=== PATIENT | female | born 2005 | race Caucasian/White ===

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

== ENCOUNTER 2024-04-02 04:07 | Emergency (ER) | payer OTHER, SELFPAY ==
[2024-04-02 04:18] VITALS: BP 118/65
[2024-04-02] MEDS: TYLENOL 1000 MG PO (04:40)
[2024-04-02 05:20] LABS: COVID-19 Antigen Negative (Negative)
[2024-04-02 08:00] VITALS: BP 107/70; BMI 24.8
--- NOTE | 2024-04-02 08:11 | ED.GENMED ---
History of Present Illness
General
Chief Complaint: Cold/Flu/URI Symptoms
Source: patient
Exam Limitations: none
Time Seen by Provider: 04/02/24 07:24
Nursing documentation reviewed up to this point in time: agreed with
History of Present Illness
History of Present Illness:
18-year-old female presenting to the emergency department today for concerns of bodyaches sore throat mild cough starting yesterday. Denies taking any medications this morning. Woke up with a fever of 100.1 at home. Denies any chest pain
shortness of breath vomiting.
Past History
Past History
ED Past Medical History: None
ED Past Surgical History: Other
Social History
Tobacco: Non-smoker
Alcohol: None
Drug: None
Personal: Single
Living: with family
Employment: Other
Family History
Family History: Other
Review of Systems
Review of Systems
Allergies reviewed?: Yes
All Other Systems: ROS reviewed and negative except as documented in HPI and ROS
Phy Exam
Physical Exam
Physical Exam:
GENERAL: Alert , in no apparent distress
EYE: pupils equal and reactive
NECK: Supple, no significant adenopathy.
ENT: Mild swelling to the tonsils without significant exudate bilaterally uvula midline, swollen boggy nasal turbinates, small minute postnasal drip. o/p clr, mmm.
CARDIAC: Regular rate and rhythm .
LUNGS: Clear breath sounds bilaterally, no acute respiratory distress, no wheezes/rales/rhonchi
ABDOMEN: Soft, without focal tenderness, no r/g, no cvat
NEUROLOGICAL: Alert and oriented, no focal neuro deficits
SKIN: Warm and dry, skin intact.
MUSCULOSKELETAL: No edema, well perfused.
PSYCH: Normal and appropriate interaction.
Sepsis
Sepsis Screening
Sepsis Assessment: Sepsis Ruled Out
Sepsis Screen
Sepsis Screen: Sepsis Ruled Out
Date: 04/02/24
Time: 08:32
Course
Orders/Labs/Results
Orders:
Orders
04/02/24 04:36
COVID-19 Antigen Urgent
Source: Nasal Swab
Influenza A+B Rapid Molecular Urgent
CHARLIE Source: Nasal Swab
Specimen Description:
04/02/24 04:38
Acetaminophen [Tylenol] 1,000 mg .ROUTE .STK-MED ONE
04/02/24 04:40
Acetaminophen [Tylenol] 1,000 mg PO NOW STA
04/02/24 06:55
Rapid Strep Group A Urgent
CHARLIE Source: Throat/Pharynx
Specimen Description:
Date Specimen was Collected: 04/02/24
Time Specimen was Collected: 06:53
04/02/24 07:59
Beta Hcg Serum Qualitative Screen [HCG, Serum Qualitative Screen] Urgent
CBC/With Diff [Complete Blood Count/With Diff] Urgent
CMP [Comprehensive Metabolic Panel] Urgent
Monotest Urgent
Dexamethasone [Decadron] 10 mg PO NOW STA
Ibuprofen [Motrin] 600 mg PO NOW STA
Test Result ONCE
Vital Signs
Initial and Last Documented VS:
Initial Vital Signs
Temp Pulse Resp BP Pulse Ox
100.1 F 104 20 118/65 96
04/02/24 04:18 04/02/24 04:18 04/02/24 04:18 04/02/24 04:18 04/02/24 04:18
Last Documented Vital Signs
Temp Pulse Resp BP Pulse Ox
100.1 F 80 16 107/70 98
04/02/24 04:18 04/02/24 08:00 04/02/24 08:00 04/02/24 08:00 04/02/24 08:00
MDM/Problems Addressed
MDM/Problems Addressed:
18-year-old female presenting to the emergency department today with concerns of bodyaches sore throat nasal congestion fever started yesterday afternoon ongoing this morning. Denies specific chest pain upon arrival mildly tachycardic mildly
febrile was given Motrin as well as steroid due to throat inflammation. Seems unlikely considering fever is low-grade, no significant exudate patient does have a cough. Or likely to be viral syndrome. Patient was tested for mono. Otherwise
patient well-appearing in no distress stable for outpatient management heart rate improving to 80 after receiving treatment here. Return precautions given.
*Critical Care Note
Total Time (30-74mins, 75-104mins- exclusive of procedures): Not Applicable
ED Attending Note
-
Portions of this chart may have been created with voice recognition software.� Occasional wrong word or��sound alike� substitutions may have occurred due to the inherent limitations of voice recognition software.
Discharge Plan
Departure
Patient Disposition: Home (Routine Discharge)
Date of Disposition: 04/02/24
Time of Disposition: 08:30
Patient with high blood pressure during this ER visit?: No
Condition: Good
Covid-19: Not Applicable
Discharge Problem:
Acute viral syndrome
Instructions: Viral Syndrome (DC)
Prescriptions:
No Action
acetaminophen-codeine 300-30 mg Tablet
1 tab PO Q4HPRN PRN (Reason: pain) Qty: 8 0RF
amoxicillin 500 mg tablet
500 mg PO BID 7 Days Qty: 14 0RF
penicillin V potassium 500 mg tablet
500 mg PO QID Qty: 40 0RF
diclofenac sodium 75 mg tablet,delayed release (DR/EC)
75 mg PO BID Qty: 10 0RF
Referrals:
NONE,* [Family Provider] -
Activity Restrictions/Additional Instructions:
You came to the emergency department today with concerns of symptoms consistent with viral syndrome. Please take Motrin Tylenol help with symptoms and stay hydrated at home. We will contact you if your monotest is positive. Return to the
emergency department for any worsening, new or concerning symptoms.
Interventions
Interventions:
*Risk Screen - Suicide Last Done: 04/02/24 04:18
*General Assessment Last Done: 04/02/24 04:18
*Neglect/Abuse Screening Last Done: 04/02/24 04:18
ED- Fall Risk Assessment Last Done: 04/02/24 04:18
*ED COVID-19 Vaccine History Last Done: 04/02/24 04:18
Discharge Date and Time
Print Language: ERITREAN
[2024-04-02] MEDS: DECADRON 10 MG PO (08:18)
[2024-04-02] MEDS: MOTRIN 600 MG PO (08:18)
[2024-04-02 08:40] LABS: % Basophils 0.3 % (0-2); % Eosinophils 0.2 % (0-6); % Immature Granulocytes 0.4 % (0-0.5); % Lymphocytes 11.9 % (20.5-51.1); % Monocytes 7.5 % (1.7-9.3); % Neutrophils 79.7 % (42.2-75.2); Absolute Immature Granulocytes 0.1 10^3/uL (0-0.05); Absolute Lymphocytes 1.4 10^3/uL (1.2-3.4); Absolute Monocytes 0.9 10^3/uL (0.1-0.6); Absolute Neutrophils 9.1 10^3/uL (1.4-6.5); Hemoglobin 13.5 g/dL (12.0-16.0); Mean Corp Hgb Conc. 33.8 g/dL (33.0-37.0); Mean Corpuscular Hgb 26.8 pg (27.0-31.0); Mean Corpuscular Volume 79.5 fL (81.0-99.0); Nucleated Red Blood Cells % 0 %; Platelet Count 185 10^3/uL (130-400); Red Blood Cell Count 5.03 10^6/uL (4.20-5.40); Red Cell Dist. Width 13.5 % (11.5-14.5); White Blood Cell Count 11.4 10^3/uL (4.8-10.8)
[2024-04-02 08:52] LABS: HCG, Serum Qualitative Screen Negative
[2024-04-02 09:07] LABS: Monotest Negative (Negative)
[2024-04-02 09:08] LABS: ALT (SGPT) 20 U/L (0-35); AST (SGOT) 20 U/L (14-36); Albumin 4.5 g/dl (3.5-5.0); Alkaline Phosphatase 64 U/L (38-126); Blood Urea Nitrogen 6 mg/dl (7-17); Calcium 9.6 mg/dl (8.4-10.2); Carbon Dioxide 27 mmol/L (22-30); Chloride 102 mmol/L (98-107); Estimated Creatinine Clearance 125 ml/min; Glucose 114 mg/dl (70-99); Sodium 138 mmol/L (135-145); Total Bilirubin 1.5 mg/dl (0.2-1.3); Total Protein 7.2 g/dl (6.3-8.2); eGFR > 60.00
== END 2024-04-02 08:44 | disposition home or self-care (01) ==
LOC: EMR 04:07
PROVIDERS: Physician Assistant; Student in an Organized Health Care Education/Training Program; EMERGENCY PHYSICIAN Emergency Medicine
DX: B34.9 Viral infection, unspecified (principal)
CPT/HCPCS: 99282; 80053; 84703; 85025; 86308; 87070; 87502; 87811; 87880

== ENCOUNTER 2024-09-05 23:01 | Emergency (ER) | payer OTHER, SELFPAY ==
[2024-09-05 23:09] VITALS: BP 108/68
[2024-09-06 00:15] VITALS: BMI 27.7
[2024-09-06] MEDS: MOTRIN 600 MG PO (00:22)
[2024-09-06] MEDS: AUGMENTIN 875 MG/125 MG 1 TABLET PO (00:22)
[2024-09-06 00:25] VITALS: BP 110/67
--- NOTE | 2024-09-06 00:26 | ED.GENMED ---
History of Present Illness
General
Chief Complaint: Anal/Rectal Problem
Source: patient and records
Exam Limitations: none
Time Seen by Provider: 09/06/24 00:05
Nursing documentation reviewed up to this point in time: agreed with
History of Present Illness
History of Present Illness:
19-year-old female 1 to 2 days of painful swelling over the tailbone similar to when she had a cyst drained no fever no drainage no nausea or vomiting
Past History
Past History
ED Past Medical History: None
ED Past Surgical History: Other (Pilonidal cyst drainage)
Social History
Tobacco: Non-smoker
Alcohol: None
Drug: None
Personal: Single
Living: with family
Family History
Family History: Other
Review of Systems
Review of Systems
All Other Systems: Not applicable
Constitutional: Denies fever or fatigue
Musculoskeletal: Reports back pain
Skin: Reports other (Swelling to elbow)
Phy Exam
Physical Exam
Physical Exam:
Physical Exam
General: no apparent distress, not acutely ill
Neck: No jaundice
Heart: s1/s2 regular rate and rhythm, no murmur. equal radial pulses.
Lungs: no acute respiratory distress. clear bilaterally
Back,: Very mild tenderness without fluctuance left upper gluteal cleft inferior to prior surgical scar no skin changes no drainage
Neuro: alert and oriented. no focal neurological deficits
Skin: no rash
Psychiatric: well kept. interactive and cooperative
Extremities: no edema.
Course
Orders/Labs/Results
Orders:
Orders
09/06/24 00:15
Amoxicillin 875 mg/Clav 125 mg [Augmentin 875 mg/125 mg] 1 tablet PO NOW STA
Ibuprofen [Motrin] 600 mg PO NOW STA
Vital Signs
Initial and Last Documented VS:
Initial Vital Signs
Temp Pulse Resp BP Pulse Ox
98.2 F 80 20 108/68 100
09/05/24 23:09 09/05/24 23:09 09/05/24 23:09 09/05/24 23:09 09/05/24 23:09
Last Documented Vital Signs
Temp Pulse Resp BP Pulse Ox
98.2 F 80 20 108/68 100
09/05/24 23:09 09/05/24 23:09 09/05/24 23:09 09/05/24 23:09 09/05/24 23:09
MDM/Problems Addressed
Differential Diagnosis Includes:
Pilonidal cyst, abscess, cellulitis
MDM/Problems Addressed:
Swelling tailbone
Acute Exacerbation and/or Progression of Chronic Illness:
Prior pilonidal cyst
*Critical Care Note
Total Time (30-74mins, 75-104mins- exclusive of procedures): Not Applicable
Update Note
Update Note:
Update patient is nontoxic no fluctuance not sure that drainage would yield much fluid shared decision making we will start a warm compresses sitz bath's, antibiotics given number for colorectal ER if worsening symptoms
ED Attending Note
-
Portions of this chart may have been created with voice recognition software.� Occasional wrong word or��sound alike� substitutions may have occurred due to the inherent limitations of voice recognition software.
Discharge Plan
Departure
Patient Disposition: Home (Routine Discharge)
Date of Disposition: 09/06/24
Time of Disposition: 00:28
Patient with high blood pressure during this ER visit?: No
Condition: Good
Discharge Problem:
Pilonidal disease
Instructions: How to Do a Sitz Bath, Pilonidal cyst - Discharge instructions
Prescriptions:
New
amoxicillin-pot clavulanate 875-125 mg tablet
1 tab PO Q12H Qty: 20 0RF
ibuprofen 600 mg tablet
600 mg PO Q8H PRN (Reason: Pain) Qty: 20 0RF
Referrals:
Doug Jordan MD [Active] - Next open appointment
Activity Restrictions/Additional Instructions:
Warm compresses, Tylenol or ibuprofen for pain
Augmentin antibiotic twice a day
Follow-up with Dr. Jordan colorectal surgeon
Return to the ER for worsening symptoms
Interventions
Interventions:
*Risk Screen - Suicide Last Done: 09/05/24 23:09
*General Assessment Last Done: 09/06/24 00:15
*Neglect/Abuse Screening Last Done: 09/05/24 23:09
*ED- Fall Risk Assessment Last Done: 09/06/24 00:15
*ED COVID-19 Vaccine History Last Done: 09/06/24 00:15
ED-Skin Assessment Last Done: 09/06/24 00:15
Discharge Date and Time
Print Language: [place]
== END 2024-09-06 00:38 | disposition home or self-care (01) ==
LOC: EMR 23:01
PROVIDERS: EMERGENCY PHYSICIAN Emergency Medicine
DX: L05.91 Pilonidal cyst without abscess (principal)
CPT/HCPCS: 99283

== ENCOUNTER 2024-09-09 19:55 | Emergency (ER) | payer OTHER, SELFPAY ==
[2024-09-09 19:58] VITALS: BP 105/72
[2024-09-09 20:29] VITALS: BMI 25.6
[2024-09-09] MEDS: MOTRIN 800 MG PO (20:32)
[2024-09-09] MEDS: NORCO 5/325 1 TABLET PO (20:32)
--- NOTE | 2024-09-09 21:00 | ED.GENMED ---
History of Present Illness
General
Chief Complaint: Skin Problem
Source: patient
Exam Limitations: none
Time Seen by Provider: 09/09/24 20:13
Nursing documentation reviewed up to this point in time: agreed with
History of Present Illness
History of Present Illness:
19 y/o F h/o pilonidal cyst previously I&D then followe dup with colorectal but no surgery
here with 4 days buttock pain
seen here 3 days ago
given augmentin which she has been taking with worsening pain
no fever/chills/drainage, vomiting,
Past History
Past History
ED Past Medical History: None
ED Past Surgical History: Other (Pilonidal cyst drainage)
Social History
Tobacco: Non-smoker
Alcohol: None
Drug: None
Personal: Single
Living: with family
Employment: Other
Family History
Family History: Other
Phy Exam
Physical Exam
Physical Exam:
GENERAL: Alert , in no apparent distress
EYE: pupils equal and reactive
NECK: Supple
ENT: o/p clr, mmm.
CARDIAC: Regular rate and rhythm .
LUNGS: Clear breath sounds bilaterally, no acute respiratory distress, no wheezes/rales/rhonchi
ABDOMEN: Soft, without focal tenderness, no r/g, no cvat, normal bowel sounds
NEUROLOGICAL: Alert and oriented, no focal neuro deficits
SKIN: Warm and dry, skin intact.
Superior gluteal cleft approximately 2 cm area of induration on either side, no obvious skin changes, no fluctuance, no tracking down into the rectum
PSYCH: Normal and appropriate interaction.
Course
Orders/Labs/Results
Orders:
Orders
09/09/24 20:28
Hydrocodone 5/APAP 325 [Bishop 5/325] 1 tablet PO NOW STA
Ibuprofen [Motrin] 800 mg PO NOW STA
Vital Signs
Initial and Last Documented VS:
Initial Vital Signs
Temp Pulse Resp BP Pulse Ox
36.8 C 86 20 105/72 95
09/09/24 19:58 09/09/24 19:58 09/09/24 19:58 09/09/24 19:58 09/09/24 19:58
Last Documented Vital Signs
Temp Pulse Resp BP Pulse Ox
36.8 C 86 20 105/72 95
09/09/24 19:58 09/09/24 19:58 09/09/24 19:58 09/09/24 19:58 09/09/24 19:58
Procedures
Incision/Drainage/Joint Aspiration
Superior Posterior Buttock:
Anethesia: 1% Lidocaine with Epi
Preparation: cleaned with Betadine
Type of procedure: incise
Nature of site: abscess
Description of abscess: greater than 3cm
How much fluid was obtained?: large amount
Fluid description: purulent
Treatment: packed with gauze
MDM/Problems Addressed
Differential Diagnosis Includes:
pilonidal cyst, abscess
MDM/Problems Addressed:
19 y/o F
pilonidal cyst not resonding to soaks and abx
I&D required previously
small 2 cm area around upper gluteal cleft on both sides with dinruation and tendrness
no fluctuance
tolerated I&D well
large purulent drainage
packed for 1 day
pt to pull packing and then soak in tub
*Critical Care Note
Total Time (30-74mins, 75-104mins- exclusive of procedures): Not Applicable
ED Attending Note
-
Portions of this chart may have been created with voice recognition software.� Occasional wrong word or��sound alike� substitutions may have occurred due to the inherent limitations of voice recognition software.
Discharge Plan
Departure
Patient Disposition: Home (Routine Discharge)
Date of Disposition: 09/09/24
Time of Disposition: 21:37
Patient with high blood pressure during this ER visit?: No
Discharge Problem:
Pilonidal cyst
Instructions: Pilonidal cyst - Discharge instructions
Prescriptions:
No Action
amoxicillin-pot clavulanate 875-125 mg tablet
1 tab PO Q12H Qty: 20 0RF
ibuprofen 600 mg tablet
600 mg PO Q8H PRN (Reason: Pain) Qty: 20 0RF
Referrals:
Slava Page MD [Active] - Follow up in 5-7 days
NONE,* [Family Provider] -
Stand Alone Forms: Return to Work
Activity Restrictions/Additional Instructions:
YOUR ABSCESS WAS DRAINED
LEAVE THE PACKING IN PLACE UNTIL TOMORROW THEN REMOVE THE STRING AND START SOAKING IN THE TUB FOR 10 MINUTES SEVERAL TIMES A DAY UNTIL HEALED
KEEP TAKING THE ANTIBIOTOICS
USE TYLENOL AND MOTRIN FOR PAIN NEEDED
FOLLOW UP WITH COLORECTAL SURGEON TO HAVE THIS REMOVED
Interventions
Interventions:
*Risk Screen - Suicide Last Done: 09/09/24 19:58
*General Assessment Last Done: 09/09/24 19:58
*Neglect/Abuse Screening Last Done: 09/09/24 19:58
*ED COVID-19 Vaccine History Last Done: 09/09/24 20:25
*Nursing Disposition Last Done: 09/09/24 21:47
ED-Skin Assessment Last Done: 09/09/24 20:25
Discharge Date and Time
Discharge Date/Time: 09/09/24 21:52
Print Language: [place]
== END 2024-09-09 21:52 | disposition home or self-care (01) ==
LOC: EMR 19:55
PROVIDERS: EMERGENCY PHYSICIAN Emergency Medicine
DX: L05.91 Pilonidal cyst without abscess (principal)
CPT/HCPCS: 99283; 10080